=== PATIENT | male | born 1945 | race Caucasian/White ===

== ENCOUNTER 2023-07-24 12:56 | Day surgery (SDC) | payer MEDICARE, OTHER ==
[2023-07-21 11:27] LABS: BASOPHILS # (AUTO) 0.1 X10'3 (0-0.2); BASOPHILS % (AUTO) 0.7 % (0-1); EOSINOPHILS # (AUTO) 0.2 X10'3 (0-0.9); EOSINOPHILS % (AUTO) 2.8 % (0-6); HEMATOCRIT 44.9 % (42.0-52.0); HEMOGLOBIN 15.1 g/dl (14.0-17.9); LYMPHOCYTES # (AUTO) 2.8 X10'3 (1.1-4.8); LYMPHOCYTES % (AUTO) 40.1 % (21-51); MEAN CORPUSCULAR HEMOGLOBIN 30.5 PG (27.0-31.0); MEAN CORPUSCULAR HGB CONC 33.6 g/dL (33.0-36.5); MEAN CORPUSCULAR VOLUME 90.8 FL (78-98); MEAN PLATELET VOLUME 10.6 FL (7.4-10.4); MONOCYTES # (AUTO) 0.5 X10'3 (0-0.9); MONOCYTES % (AUTO) 7.6 % (2-12); NEUTROPHILS # (AUTO) 3.4 X10'3 (1.8-7.7); NEUTROPHILS % (AUTO) 48.8 % (42-75); PLATELET COUNT 172 X10'3 (140-440); RED BLOOD COUNT 4.94 X10'6 (4.70-6.10); RED CELL DISTRIBUTION WIDTH 13.7 % (11.5-14.5)
[2023-07-21 11:33] LABS: APTT 28 SECONDS (22-32); PROTHROMBIN TIME 10.6 SECONDS (9.0-12.0)
[2023-07-21 11:36] LABS: ALBUMIN 3.6 G/DL (3.4-5.0); ANION GAP 6 (8-16); BLOOD UREA NITROGEN 18 MG/DL (7-18); CALCIUM 9.6 MG/DL (8.5-10.1); CHLORIDE 104 MMOL/L (99-107); CHOL/HDL RATIO 2.5 (0.00-4.99); CHOLESTEROL 155 MG/DL (0-200); GLUCOSE 119 MG/DL (70-104); HDL CHOLESTEROL 61 MG/DL (35-60); LDL CHOLESTEROL 75 MG/DL (50-100); POTASSIUM 4.3 MMOL/L (3.5-5.1); SODIUM 139 MMOL/L (135-145); TOTAL CARBON DIOXIDE 29.3 MMOL/L (24-32); TRIGLYCERIDES 124 MG/DL (20-135); eGFR 81 ML/MIN
[2023-07-21 11:45] LABS: LARGE PLATELETS FEW; PLATELET ESTIMATE NORMAL
[2023-07-24] VITALS (11 sets, daily range): BP systolic 155–176; BP diastolic 62–73; PULSE 54–70; RESP 12–21; TEMP 97.8; O2SAT 94–100
[~2023-07-24] VITALS: Ht 170.2 cm; Wt 119.0 kg
[2023-07-24] MEDS ORDERED: diphenhydrAMINE 25mg capsule PO PRN (13:15)
[2023-07-24] MEDS ORDERED: LORazepam 0.5 MG tablet PO PRN (13:15)
[2023-07-24] MEDS ORDERED: normal saline 1,000 ML IV SCH (13:15)
[2023-07-24] MEDS ORDERED: MELO-100 PO (13:25)
[2023-07-24] MEDS ORDERED: BRIM5DRO2 EACHEYE (13:25)
[2023-07-24] MEDS ORDERED: ASPI81TA52 PO (13:25)
[2023-07-24] MEDS ORDERED: ALLO100T PO (13:25)
[2023-07-24] MEDS ORDERED: VITC500T PO (13:25)
[2023-07-24] MEDS ORDERED: FURO20TA4 PO (13:25)
[2023-07-24] MEDS ORDERED: COLC0.6T72 PO (13:25)
[2023-07-24] MEDS ORDERED: AMLO-381 PO (13:25)
[2023-07-24] MEDS ORDERED: CYAN250014 PO (13:25)
[2023-07-24] MEDS ORDERED: ROSU20TA73 PO (13:25)
[2023-07-24] MEDS ORDERED: MULT-269 PO (13:25)
[2023-07-24] MEDS ORDERED: CHOL50004 PO (13:25)
[2023-07-24] MEDS ORDERED: BIMA2.5D EACHEYE (13:25)
[2023-07-24] MEDS ORDERED: nitroGLYCERIN 500mcg/5mL D5W 5 ML IV ONE (15:02)
[2023-07-24] MEDS ORDERED: LIDOcaine 1% (10mg/ml) 2ml vial ONE (15:03)
[2023-07-24] MEDS ORDERED: fentaNYL/PF 50MCG/1 ML 2ML syringe ONE (15:04)
[2023-07-24] MEDS ORDERED: verapamil 2.5 mg/ml inj IV ONE (15:04)
[2023-07-24] MEDS ORDERED: iohexol 350MG/ML 100ml bottle IV ONE (15:04)
[2023-07-24] MEDS ORDERED: midazolam 1 mg/ML 2ml injection ONE (15:04)
[2023-07-24] MEDS ORDERED: heparin 1,000unit/ml 10ml vial 10 ML ONE (15:04)
[2023-07-24] MEDS ORDERED: LIDOcaine 1% (10mg/ml)w/preservative inj. 20ml MDV ONE (15:24)
[2023-07-24 15:58] LABS: ISTAT HGB ART 13.6 g/dl (14.0-17.9); ISTAT Hct ART 40 %PCV (42-52); ISTAT O2 SATURATION ARTERIAL 94 % (95-98); ISTAT SOURCE ART
[2023-07-24] MEDS ORDERED: iohexol 350 MG/ML 50ML vial IV ONE (16:09)
[2023-07-24] MEDS ORDERED: HYDROcodone/acetaminophen 10/325mg tab PO PRN (17:20)
[2023-07-24] MEDS ORDERED: HYDROcodone/acetaminophen 5mg/325mg tablet PO PRN (17:20)
[2023-07-25 06:54] LABS: ISTAT HGB MIX 13.6 g/dl (14.0-17.9); ISTAT Hct MIX 40 %PCV (42-52); ISTAT O2 SATURATION MIX VENOUS 68 % (60-80); ISTAT SOURCE VEN
== END 2023-07-24 19:30 | disposition home or self-care (01) ==
LOC: SSTAY O 12:56
PROVIDERS: ATTEND Student in an Organized Health Care Education/Training Program
DX: I35.0 Nonrheumatic aortic (valve) stenosis (principal); I25.119 Atherosclerotic heart disease of native coronary artery with unspecified angina pectoris; E78.5 Hyperlipidemia, unspecified; I10 Essential (primary) hypertension; I65.29 Occlusion and stenosis of unspecified carotid artery; G47.33 Obstructive sleep apnea (adult) (pediatric); M10.9 Gout, unspecified; Z79.82 Long term (current) use of aspirin; Z79.899 Other long term (current) drug therapy
CPT/HCPCS: 36415; 80048; 80061; 82803; 85014; 85025; 85610; 85730; 93005; 93456; 99152; 99153; A6258; J1644; J2250; J3010; J3490; J7030; Q0163; Q9967; 85008; A6402; C1751; C1894

== ENCOUNTER 2023-09-01 05:20 | Inpatient (IN) | payer MEDICARE, OTHER ==
[2023-08-28 15:20] LABS: BILIRUBIN,URINE NEGATIVE (Neg); CLARITY,URINE CLEAR (Clear); COLOR,URINE YELLOW (Yellow); GLUCOSE, URINE NEGATIVE (Neg); KETONES,URINE NEGATIVE (Neg); LEUKOCYTE ESTERASE ,URINE NEGATIVE (Neg); NITRITES, URINE NEGATIVE (Neg); OCCULT BLOOD,URINE NEGATIVE (Neg); PROTEIN,URINE NEGATIVE (Neg); UROBILINOGEN,URINE 0.2 E.U/dL (0.2-1.0)
[2023-08-28 15:23] LABS: BASOPHILS % (AUTO) 0.6 % (0-1); EOSINOPHILS # (AUTO) 0.2 X10'3 (0-0.9); EOSINOPHILS % (AUTO) 2.3 % (0-6); LYMPHOCYTES # (AUTO) 3.3 X10'3 (1.1-4.8); LYMPHOCYTES % (AUTO) 42.6 % (21-51); MEAN CORPUSCULAR HEMOGLOBIN 30.6 PG (27.0-31.0); MEAN CORPUSCULAR HGB CONC 33.9 g/dL (33.0-36.5); MEAN CORPUSCULAR VOLUME 90.3 FL (78-98); MEAN PLATELET VOLUME 11.7 FL (7.4-10.4); MONOCYTES # (AUTO) 0.6 X10'3 (0-0.9); MONOCYTES % (AUTO) 8.1 % (2-12); NEUTROPHILS # (AUTO) 3.5 X10'3 (1.8-7.7); NEUTROPHILS % (AUTO) 46.4 % (42-75); PRE OP HEMOGLOBIN 15.6 g/dL (14.0-17.9); PRE OP PLATELET COUNT 170 X10'3 (140-440); PRE OP WHITE BLOOD COUNT 7.6 10'3 (4.8-10.8); RED BLOOD COUNT 5.09 X10'6 (4.70-6.10); RED CELL DISTRIBUTION WIDTH 13.6 % (11.5-14.5)
[2023-08-28 15:23] LABS: ABG BASE EXCESS 0.7 mmol/L (-2.0-2.0); ABG HCO3 25.1 mmol/L (22.0-26.0); ABG OXYGEN SATURATION 96.3 % (94-97); ABG PCO2 (T) 39.6 mmHg (35.0-48.0); ABG PO2 (T) 80.9 mmHg (75.0-100.0); ALLEN'S TEST POSITIVE; FCOHb 0.7 % (0.0-3.9); FHHb 3.7 % (0.0-5.0); FMetHb 0.2 % (0.0-1.5); FO2Hb 95.4 % (94-97); TOTAL HEMOGLOBIN 15.9 G/dl (14.0-17.9)
[2023-08-28 15:26] LABS: UA COLLECTION TYPE CLN CATCH MIDSTREAM
[2023-08-28 15:32] LABS: PRE OP PROTIME 10.5 SECONDS (9.0-12.0)
[2023-08-28 15:37] LABS: ALBUMIN 3.9 G/DL (3.4-5.0); ALBUMIN/GLOBULIN RATIO 1.1 (1.1-1.5); ALKALINE PHOSPHATASE 76 IU/L (46-116); BLOOD UREA NITROGEN 27 MG/DL (7-18); BUN/CREATININE RATIO 32.5 (10.0-20.0); CALCIUM 9.8 MG/DL (8.5-10.1); CHLORIDE 103 MMOL/L (99-107); CREATININE 0.83 MG/DL (0.60-1.10); PRE OP ALT 32 U/L (30-65); PRE OP ANION GAP 7 (8-16); PRE OP AST 22 U/L (10-37); PRE OP BILIRUB, TOTAL 1.4 MG/DL (0.0-1.0); PRE OP GLUCOSE 85 MG/DL (70-104); PRE OP SODIUM 137 MMOL/L (135-145); TOTAL PROTEIN 7.6 G/DL (6.4-8.2); eGFR 89 ML/MIN
[~2023-09-01] VITALS: Ht 167.6 cm; Wt 115.8 kg
[2023-09-01] VITALS (19 sets, daily range): BP systolic 117–147; BP diastolic 45–82; PULSE 57–94; RESP 14–22; TEMP 97.6; O2SAT 92–98
[~2023-09-01 05:20] MED LIST: ALLO100T PO; AMLO1TAB14 PO; ASPI81TA52 PO; BCAR25C PO; BIMA2.5D EACHEYE; BRIM5DRO2 EACHEYE; CHOL50004 PO; COLC0.6T72 PO; CYAN250014 PO; FURO20TA4 PO; MELO-100 PO; MULT-269 PO; ROSU20TA73 PO; VITA400T10 PO; VITC500T PO; ZINC100T2 PO; ringers solution, lacted 1,000 ML IV SCH
[2023-09-01] MEDS ORDERED: metoprolol tartrate 12.5mg (1/2 tablet) PO ONE (05:30)
[2023-09-01] MEDS ORDERED: famotidine 20mg tablet PO ONE (05:30)
[2023-09-01] MEDS ORDERED: mupirocin 2% nasal ointment 1gm UD NS ONE (05:30)
[2023-09-01] MEDS ORDERED: cefazolin 2gm/D5W 100mL 100 ML IV ONE (05:30)
[2023-09-01] MEDS ORDERED: vancomycin 1,500 MG in NS 300ml IV soln IV ONE (05:30)
[2023-09-01] MEDS ORDERED: LORazepam 2 mg/ml vial IV PRN (06:20)
[2023-09-01] MEDS ORDERED: insulin glargine (Lantus) pen - multi-dose SQ PRN ×2 (06:25→12:50)
[2023-09-01] MEDS ORDERED: Insulin Reg/NS 100units/100mL 100 ML IV SCH ×2 (06:25→12:50)
[2023-09-01] MEDS ORDERED: dextrose 50%-water 50ml dispensing syringe IV PRN ×2 (06:25→12:50)
[2023-09-01] MEDS ORDERED: vancomycin 1,000mg inj ONE (06:45)
[2023-09-01] MEDS ORDERED: ceFAZolin 1000mg inj ONE (06:45)
[2023-09-01] MEDS ORDERED: epiNEPHrine 1 mg/ml inj ONE (06:45)
--- NOTE | 2023-09-01 07:00 | NUR ---
HELD METOPROLOL BASED ON PARAMETERS, HR 57: AMARI MÉNDEZ NOTIFIED
[2023-09-01] MEDS ORDERED: BUPIVAcaine 0.5% inj/PF 60 ML ONE (07:46)
[2023-09-01] MEDS ORDERED: albumin (human) 25% 100 ML IV solution IV ONE (08:00)
[2023-09-01] MEDS ORDERED: MAGNESIUM SULFATE 4 MEQ/ML (5gm/10ml) injection ONE (08:00)
[2023-09-01] MEDS ORDERED: heparin 10,000 units/1 ML INJ ONE (08:00)
[2023-09-01] MEDS ORDERED: LIDOcaine 2% (20 mg/ml) 5ml cardiac syringe ONE (08:00)
[2023-09-01] MEDS ORDERED: mannitol 12.5gm/50mL VIAL IV ONE (08:00)
[2023-09-01] MEDS ORDERED: calcium chloride 100 MG/1 ML inj IV ONE (08:00)
[2023-09-01] MEDS ORDERED: sodium bicarbonate (8.4%) 1 mEq/ml syringe ONE (08:00)
[2023-09-01] MEDS ORDERED: heparin 1,000 units/ml 10ml inj ONE (08:00)
[2023-09-01] MEDS ORDERED: aminocaproic acid 250 MG/1 ML inj. ONE ×2 (08:00→08:02)
[2023-09-01] MEDS ORDERED: NORepinephrine 1 mg/ml inj IV ONE (08:00)
[2023-09-01] MEDS ORDERED: methylPREDNISolone sod succ 1000mg vial ONE (08:00)
[2023-09-01] MEDS ORDERED: nitroPRUSSIDE 20mg/NS 100mL (0.2mg/mL) VIAL (200mcg/ml) IV ONE (08:02)
[2023-09-01] MEDS ORDERED: protamine sulf. 10mg/ml inj. IV ONE (08:02)
[2023-09-01] MEDS ORDERED: sodium bicarbonate 1 mEq/ml 50ml vial IV ONE (08:02)
[2023-09-01] MEDS ORDERED: SUfentanil 50mcg/ml 1ml amp IV ONE ×2 (08:06)
[2023-09-01] MEDS ORDERED: ipratropium/albuterol 3ml nebule IH PRN (08:15)
[2023-09-01] MEDS ORDERED: propofol inj 20 ML IV ONE (08:16)
[2023-09-01] MEDS ORDERED: LIDOcaine 2% (20mg/ml) 5ml vial ONE (08:16)
[2023-09-01] MEDS ORDERED: rocuronium 10mg/ml inj IV ONE ×2 (08:16→09:31)
[2023-09-01] MEDS ORDERED: LORazepam 2 mg/ml vial ONE (08:22)
[2023-09-01 09:08] LABS: ABG BASE EXCESS 0.1 mmol/L (-2.0-2.0); ABG HCO3 23.4 mmol/L (22.0-26.0); ABG OXYGEN SATURATION 99.6 % (94-97); ABG PCO2 33.8 mmHg (35.0-48.0); ABG PH 7.458 (7.340-7.440); ABG PO2 470.5 mmHg (75.0-100.0); CL (ABG) 107 mmol/L (99-107); FCOHb 0.2 % (0.0-3.9); FHHb 0.4 % (0.0-5.0); FMetHb 0.3 % (0.0-1.5); FO2Hb 99.1 % (94-97); GLUCOSE (ABG) 105 mg/dl (70-104); IONIZED CA (ABG) 1.19 mmol/L (1.10-1.30); K (ABG) 4.1 mmol/L (3.5-5.1); TOTAL HEMOGLOBIN 13.6 G/dl (14.0-17.9)
[2023-09-01 10:19] LABS: ABG BASE EXCESS -1.7 mmol/L (-2.0-2.0); ABG HCO3 22.9 mmol/L (22.0-26.0); ABG OXYGEN SATURATION 99.1 % (94-97); ABG PCO2 38.4 mmHg (35.0-48.0); ABG PH 7.394 (7.340-7.440); ABG PO2 333.9 mmHg (75.0-100.0); CL (ABG) 103 mmol/L (99-107); FCOHb 0.3 % (0.0-3.9); FHHb 0.9 % (0.0-5.0); FMetHb 0.3 % (0.0-1.5); FO2Hb 98.5 % (94-97); GLUCOSE (ABG) 96 mg/dl (70-104); IONIZED CA (ABG) 1.03 mmol/L (1.10-1.30); TOTAL HEMOGLOBIN 10.6 G/dl (14.0-17.9)
[2023-09-01 11:03] LABS: ABG BASE EXCESS VENOUS -2.6 mmol/L (-2.0 - 2.0); ABG HCO3 VENOUS 22.7 mmol/L (21.0-28.0); ABG OXYGEN SATURATION VENOUS 85.2 % (75 - 99 %); ABG PCO2 VENOUS 41.6 mmHg (41.0-54.0); ABG PH (VENOUS) 7.355 (7.310-7.450); CL (ABG) 103 mmol/L (99-107); FCOHb VENOUS 0.3 %; FHHb VENOUS 14.7 %; FMetHb VENOUS 0.3 % (0.0 - 0.5); FO2Hb VENOUS 84.7 %; GLUCOSE (ABG) 106 mg/dl (70-104); IONIZED CA (ABG) 1.05 mmol/L (1.10-1.30); K (ABG) 5.2 mmol/L (3.5-5.1); TOTAL HEMOGLOBIN 9.9 G/dl (14.0-17.9)
[2023-09-01 11:36] LABS: ABG BASE EXCESS -2.5 mmol/L (-2.0-2.0); ABG HCO3 22.2 mmol/L (22.0-26.0); ABG OXYGEN SATURATION 99.1 % (94-97); ABG PCO2 38.1 mmHg (35.0-48.0); ABG PH 7.384 (7.340-7.440); ABG PO2 314.8 mmHg (75.0-100.0); CL (ABG) 105 mmol/L (99-107); FCOHb 0.3 % (0.0-3.9); FHHb 0.9 % (0.0-5.0); FMetHb 0.3 % (0.0-1.5); FO2Hb 98.5 % (94-97); GLUCOSE (ABG) 114 mg/dl (70-104); IONIZED CA (ABG) 1.09 mmol/L (1.10-1.30); K (ABG) 4.4 mmol/L (3.5-5.1); TOTAL HEMOGLOBIN 10.4 G/dl (14.0-17.9)
[2023-09-01 12:26] LABS: ABG BASE EXCESS -2.7 mmol/L (-2.0-2.0); ABG HCO3 22.5 mmol/L (22.0-26.0); ABG OXYGEN SATURATION 96.6 % (94-97); ABG PCO2 40.4 mmHg (35.0-48.0); ABG PH 7.363 (7.340-7.440); ABG PO2 95.3 mmHg (75.0-100.0); CL (ABG) 105 mmol/L (99-107); FCOHb 0.3 % (0.0-3.9); FHHb 3.4 % (0.0-5.0); FMetHb 0.3 % (0.0-1.5); GLUCOSE (ABG) 126 mg/dl (70-104); IONIZED CA (ABG) 1.25 mmol/L (1.10-1.30); K (ABG) 4.2 mmol/L (3.5-5.1); TOTAL HEMOGLOBIN 10.3 G/dl (14.0-17.9)
[2023-09-01 12:28] LABS: ACTIVATED CLOTTING TIME 110 SEC (101-148)
[2023-09-01] MEDS ORDERED: esmolol inj. 10 ML IV ONE (12:38)
[2023-09-01] MEDS ORDERED: niCARDipine-NS 40mg/200ml IVPB 200 ML IV PRN (12:50)
[2023-09-01] MEDS ORDERED: potassium Cl 40MEQ/270ML bag 250 ML IV PRN (12:50)
[2023-09-01] MEDS ORDERED: sodium phosphate inj. 15 MMOL in dextrose 5%-water 250 ML IV PRN (12:50)
[2023-09-01] MEDS ORDERED: magnesium 2GM in 50ml NS 50 ML IV PRN (12:50)
[2023-09-01] MEDS ORDERED: magnesium hydroxide 30ml (MOM) UD suspension PO PRN (12:50)
[2023-09-01] MEDS ORDERED: magnesium 4gm in 100ml NS 100 ML IV PRN (12:50)
[2023-09-01] MEDS ORDERED: mineral oil 133ml enema RC PRN (12:50)
[2023-09-01] MEDS ORDERED: bisacodyl 10mg suppository rectal RC PRN (12:50)
[2023-09-01] MEDS ORDERED: ondansetron/PF 4mg/2ml inj IV PRN (12:50)
[2023-09-01] MEDS: nitroGLYCERIN-Tridil 50MG/D5W 250 ML IV SCH (12:50)
[2023-09-01] MEDS ORDERED: NORepinephrine 8mg/ 250ml NS 250 ML IV PRN (12:50)
[2023-09-01] MEDS ORDERED: potassium Cl 20 mEq SR tablet PO PRN (12:50)
[2023-09-01] MEDS ORDERED: potassium CL 10mEq/100ml bag 100 ML IV PRN (12:50)
[2023-09-01] MEDS ORDERED: Neutra Phos packet PO PRN (12:50)
[2023-09-01] MEDS ORDERED: sodium phosphate inj. 30 MMOL in dextrose 5%-water 250 ML IV PRN (12:50)
[2023-09-01] MEDS ORDERED: potassium Cl 40MEQ/1/2NS 520ml 520 ML IV PRN (12:50)
[2023-09-01] MEDS ORDERED: albumin (Human) 5% 250ml 250 ML IV PRN (12:50)
[2023-09-01] MEDS ORDERED: sodium chloride 0.45% 1,000 ML IV SCH (12:50)
[2023-09-01] MEDS ORDERED: metoclopramide 5 mg/ml inj IV PRN (12:50)
[2023-09-01] MEDS ORDERED: morphine 4 MG/ML inj SYRINge IV PRN (12:50)
[2023-09-01] MEDS ORDERED: acetaminophen 325mg tablet PO PRN ×2 (12:50)
[2023-09-01] MEDS ORDERED: colchicine 0.6mg tablet PO PRN (13:05)
[2023-09-01 13:25] LABS: ABG BASE EXCESS -2.8 mmol/L (-2.0-2.0); ABG HCO3 21.4 mmol/L (22.0-26.0); ABG OXYGEN SATURATION 98.2 % (94-97); ABG PCO2 (T) 34.5 mmHg (35.0-48.0); ABG PH (T) 7.408 (7.340-7.440); ABG PO2 (T) 105.6 mmHg (75.0-100.0); FCOHb 0.9 % (0.0-3.9); FHHb 1.8 % (0.0-5.0); FMetHb 0.3 % (0.0-1.5); MODE VENT - SIMV; PATIENT TEMPERATURE 36.6; PEEP 5 cm H2O; RESPIRATORY RATE 14 b/min; TIDAL VOLUME 650 mL; TOTAL HEMOGLOBIN 11.6 G/dl (14.0-17.9)
[2023-09-01 14:42] LABS: BASOPHILS % (AUTO) 0.2 % (0-1); EOSINOPHILS # (AUTO) 0.1 X10'3 (0-0.9); EOSINOPHILS % (AUTO) 0.5 % (0-6); HEMATOCRIT 33.9 % (42.0-52.0); HEMOGLOBIN 11.3 g/dl (14.0-17.9); LYMPHOCYTES # (AUTO) 2.3 X10'3 (1.1-4.8); LYMPHOCYTES % (AUTO) 15.7 % (21-51); MEAN CORPUSCULAR HEMOGLOBIN 30.3 PG (27.0-31.0); MEAN CORPUSCULAR HGB CONC 33.3 g/dL (33.0-36.5); MEAN PLATELET VOLUME 11.5 FL (7.4-10.4); MONOCYTES % (AUTO) 7.1 % (2-12); NEUTROPHILS % (AUTO) 76.5 % (42-75); PLATELET COUNT 100 X10'3 (140-440); RED BLOOD COUNT 3.72 X10'6 (4.70-6.10); RED CELL DISTRIBUTION WIDTH 13.5 % (11.5-14.5); WHITE BLOOD COUNT 14.4 X10'3 (4.5-11.0)
[2023-09-01 14:58] LABS: APTT 26 SECONDS (22-32); INR 1.2 INR
[2023-09-01] MEDS: morphine 2 MG/ML inj. syringe IV PRN (15:00)
--- NOTE | 2023-09-01 15:03 | NUR ---
Nutrition consult: Per EMR pt remains intubated s/p CABG x 4 and AVR today. Pt would benefit from nutrition therapy education as appropriate following extubation. Will continue to follow. Addendum: 09/01/23 at [address] Amended: Links added.
[2023-09-01 15:06] LABS: ALANINE AMINOTRANSFERASE 25 U/L (12-78); ALBUMIN 2.8 G/DL (3.4-5.0); ALBUMIN/GLOBULIN RATIO 1.6 (1.1-1.5); ALKALINE PHOSPHATASE 41 IU/L (46-116); ANION GAP 10 (8-16); ASPARTATE AMINO TRANSFERASE 43 U/L (10-37); BILIRUBIN,TOTAL 1.4 MG/DL (0.1-1.0); BLOOD UREA NITROGEN 21 MG/DL (7-18); BUN/CREATININE RATIO 24.7 (10.0-20.0); CALCIUM 8.1 MG/DL (8.5-10.1); CHLORIDE 109 MMOL/L (99-107); CREATININE 0.85 MG/DL (0.60-1.10); GLUCOSE 120 MG/DL (70-104); MAGNESIUM 3.3 MG/DL (1.5-2.4); PHOSPHORUS 1.7 MG/DL (2.3-4.5); SODIUM 143 MMOL/L (135-145); TOTAL CARBON DIOXIDE 24.2 MMOL/L (24-32); TOTAL PROTEIN 4.6 G/DL (6.4-8.2); eCRCL 64 ML/MIN; eGFR 87 ML/MIN
[2023-09-01 15:08] LABS: POTASSIUM 3.7 MMOL/L (3.5-5.1)
[2023-09-01 15:18] LABS: LARGE PLATELETS FEW; PLATELET ESTIMATE NORMAL; SMUDGE CELLS FEW; TOTAL CELLS COUNTED 100
[2023-09-01 16:10] LABS: ABG BASE EXCESS -7.4 mmol/L (-2.0-2.0); ABG HCO3 18.4 mmol/L (22.0-26.0); ABG OXYGEN SATURATION 95.3 % (94-97); ABG PCO2 (T) 37.1 mmHg (35.0-48.0); ABG PH (T) 7.309 (7.340-7.440); ABG PO2 (T) 78.7 mmHg (75.0-100.0); FHHb 4.6 % (0.0-5.0); FMetHb 0.3 % (0.0-1.5); FO2Hb 94.1 % (94-97); MODE VENT - CPAP; PATIENT TEMPERATURE 36.4; PEEP 5 cm H2O; TOTAL HEMOGLOBIN 12.4 G/dl (14.0-17.9)
[2023-09-01] MEDS: ceFAZolin/D5W- 1GM premix 50 ML IV SCH ×2 (16:33→23:52)
[2023-09-01] MEDS: potassium Cl 20mEq/100mL bag 100 ML IV PRN ×3 (16:33→20:01)
--- NOTE | 2023-09-01 18:30 | NUR ---
Patient in room ICU 2038. I have received report from Jeronimo MAE and had the opportunity to ask questions and assume patient care.
--- NOTE | 2023-09-01 19:33 | NUR ---
PA line not calculation numbers. attempted to change box and still not calculating. Jabier villegas to D/C
[2023-09-01] MEDS: sennosides/docusate sodium tablet PO SCH (20:00)
[2023-09-01] MEDS: mupirocin 2% nasal ointment 1gm UD NS SCH (20:01)
[2023-09-01] MEDS: vancomycin/NS 1 GM ADD-VANTAGE 250 ML IV SCH (20:01)
[2023-09-01] MEDS: brimonidine 0.2% 5 ML ophthalmic drops EACHEYE SCH (20:02)
[2023-09-01] MEDS: timolol 0.5% ophthalmic solution 5ml bottle EACHEYE SCH (20:02)
[2023-09-01] MEDS: latanoprost 0.005% 2.5ml ophthalmic drops EACHEYE SCH (20:12)
[2023-09-01] MEDS: atorvastatin 10mg tablet PO SCH (20:12)
[2023-09-01] MEDS: cyanocobalamin 500mcg tablet PO SCH (20:12)
[2023-09-01] MEDS: cholecalciferol (vitamin D3) 1,000 unit (25mcg) tablet PO SCH (20:12)
[2023-09-01] MEDS: allopurinol 100mg tablet PO SCH (20:13)
[2023-09-01 22:25] LABS: BASOPHILS % (AUTO) 0.1 % (0-1); EOSINOPHILS % (AUTO) 0.1 % (0-6); LYMPHOCYTES # (AUTO) 0.7 X10'3 (1.1-4.8); LYMPHOCYTES % (AUTO) 4.1 % (21-51); MEAN CORPUSCULAR HEMOGLOBIN 30.3 PG (27.0-31.0); MEAN CORPUSCULAR HGB CONC 33.2 g/dL (33.0-36.5); MEAN CORPUSCULAR VOLUME 91.2 FL (78-98); MEAN PLATELET VOLUME 10.5 FL (7.4-10.4); MONOCYTES # (AUTO) 0.7 X10'3 (0-0.9); MONOCYTES % (AUTO) 4.2 % (2-12); NEUTROPHILS # (AUTO) 15.9 X10'3 (1.8-7.7); NEUTROPHILS % (AUTO) 91.5 % (42-75); PLATELET COUNT 90 X10'3 (140-440); RED BLOOD COUNT 3.62 X10'6 (4.70-6.10); RED CELL DISTRIBUTION WIDTH 13.6 % (11.5-14.5); WHITE BLOOD COUNT 17.3 X10'3 (4.5-11.0)
[2023-09-01 22:41] LABS: ANION GAP 11 (8-16); BLOOD UREA NITROGEN 24 MG/DL (7-18); BUN/CREATININE RATIO 21.4 (10.0-20.0); CALCIUM 7.6 MG/DL (8.5-10.1); CHLORIDE 111 MMOL/L (99-107); CREATININE 1.12 MG/DL (0.60-1.10); GLUCOSE 162 MG/DL (70-104); MAGNESIUM 2.5 MG/DL (1.5-2.4); PHOSPHORUS 4.2 MG/DL (2.3-4.5); SODIUM 143 MMOL/L (135-145); TOTAL CARBON DIOXIDE 21.3 MMOL/L (24-32); eCRCL 48 ML/MIN; eGFR 63 ML/MIN
[2023-09-01] MEDS: HYDROcodone/acetaminophen 10/325mg tab PO PRN (23:34)
[2023-09-02] VITALS (24 sets, daily range): BP systolic 112–152; BP diastolic 44–70; PULSE 58–73; RESP 2–22; O2SAT 92–96
--- NOTE | 2023-09-02 00:16 | NUR ---
Patient educated continuously throughout the shift on sternal precautions but continues to be impulsive and use elbows and arms to shift around in bed.
--- NOTE | 2023-09-02 01:32 | NUR ---
Continue to educate patient on sternal precautions but patient continues to use elbows and shift self in bed. In constant view of patient.
[2023-09-02] MEDS: morphine 2 MG/ML inj. syringe IV PRN (01:40)
[2023-09-02] MEDS: nitroGLYCERIN-Tridil 50MG/D5W 250 ML IV SCH (02:46)
[2023-09-02] MEDS: HYDROcodone/acetaminophen 10/325mg tab PO PRN ×2 (03:12→20:58)
[2023-09-02 03:26] LABS: BASOPHILS % (AUTO) 0.1 % (0-1); EOSINOPHILS % (AUTO) 0 % (0-6); HEMATOCRIT 34.7 % (42.0-52.0); HEMOGLOBIN 11.5 g/dl (14.0-17.9); LYMPHOCYTES # (AUTO) 0.9 X10'3 (1.1-4.8); LYMPHOCYTES % (AUTO) 4.7 % (21-51); MEAN CORPUSCULAR HEMOGLOBIN 30.3 PG (27.0-31.0); MEAN CORPUSCULAR HGB CONC 33.2 g/dL (33.0-36.5); MEAN CORPUSCULAR VOLUME 91.3 FL (78-98); MEAN PLATELET VOLUME 12.1 FL (7.4-10.4); MONOCYTES # (AUTO) 1.1 X10'3 (0-0.9); MONOCYTES % (AUTO) 5.6 % (2-12); NEUTROPHILS % (AUTO) 89.6 % (42-75); PLATELET COUNT 100 X10'3 (140-440); RED CELL DISTRIBUTION WIDTH 13.9 % (11.5-14.5); WHITE BLOOD COUNT 18.9 X10'3 (4.5-11.0)
[2023-09-02 03:42] LABS: ALANINE AMINOTRANSFERASE 29 U/L (12-78); ALBUMIN 3.3 G/DL (3.4-5.0); ALBUMIN/GLOBULIN RATIO 1.5 (1.1-1.5); ALKALINE PHOSPHATASE 47 IU/L (46-116); ANION GAP 11 (8-16); ASPARTATE AMINO TRANSFERASE 68 U/L (10-37); BILIRUBIN,TOTAL 1.4 MG/DL (0.1-1.0); BLOOD UREA NITROGEN 25 MG/DL (7-18); BUN/CREATININE RATIO 27.5 (10.0-20.0); CALCIUM 8.2 MG/DL (8.5-10.1); CHLORIDE 109 MMOL/L (99-107); CREATININE 0.91 MG/DL (0.60-1.10); GLUCOSE 159 MG/DL (70-104); MAGNESIUM 2.6 MG/DL (1.5-2.4); PHOSPHORUS 3.9 MG/DL (2.3-4.5); POTASSIUM 4.9 MMOL/L (3.5-5.1); SODIUM 141 MMOL/L (135-145); TOTAL CARBON DIOXIDE 21.5 MMOL/L (24-32); TOTAL PROTEIN 5.5 G/DL (6.4-8.2); eCRCL 59 ML/MIN; eGFR 80 ML/MIN
--- NOTE | 2023-09-02 06:12 | NUR ---
Problems reprioritized. Patient report given, questions answered & plan of care reviewed with Bernie MAE.
--- NOTE | 2023-09-02 06:35 | NUR ---
Assumed care of pt after report from Esther MAE. Pt is resting comfortably. O2 NC decreased to 4.5 L.
--- NOTE | 2023-09-02 08:00 | NUR ---
O2 decreased to 4L NC. VSS.
[2023-09-02] MEDS: multivitamins, therapeutics tablet PO SCH (08:59)
[2023-09-02] MEDS: sennosides/docusate sodium tablet PO SCH ×2 (08:59→20:54)
[2023-09-02] MEDS: metoprolol tartrate 12.5mg (1/2 tablet) PO SCH ×2 (08:59→20:54)
[2023-09-02] MEDS: aspirin 81mg tab.chew PO SCH (08:59)
[2023-09-02] MEDS: ceFAZolin/D5W- 1GM premix 50 ML IV SCH ×2 (09:00→15:23)
[2023-09-02] MEDS: mupirocin 2% nasal ointment 1gm UD NS SCH ×2 (09:00→20:00)
[2023-09-02] MEDS: brimonidine 0.2% 5 ML ophthalmic drops EACHEYE SCH ×2 (09:00→20:56)
[2023-09-02] MEDS: timolol 0.5% ophthalmic solution 5ml bottle EACHEYE SCH ×2 (09:01→20:55)
[2023-09-02] MEDS: vancomycin/NS 1 GM ADD-VANTAGE 250 ML IV SCH ×2 (09:09→20:53)
--- NOTE | 2023-09-02 12:10 | NUR ---
Marissa removed and RIJ central line dsg changed with the help of Student nurse. Pt tolerated it well. Pt's at bedside.
--- NOTE | 2023-09-02 13:00 | NUR ---
Pt is OOB to chair eating lunch. Pt does have some forgetful and impulsive moments. remains at bedside.
[2023-09-02] MEDS ORDERED: MESSAGE TO PHARMACY PO ONE (15:55)
[2023-09-02] MEDS ORDERED: insulin Lispro (HumaLOG) vial - multi-dose SQ SCH (15:55)
[2023-09-02] MEDS ORDERED: glucagon, human recombinant 1mg kit SUBCUT PRN (15:55)
[2023-09-02] MEDS ORDERED: DEXTROSE 15 GM of carb/4 tabs (each vial/BOTTLE has 4 tablets) PO PRN ×2 (15:55)
--- NOTE | 2023-09-02 18:45 | NUR ---
Report given to Susan MAE.
[2023-09-02] MEDS: insulin glargine (Lantus) pen - multi-dose SQ SCH (21:00)
[2023-09-02] MEDS: cyanocobalamin 500mcg tablet PO SCH (21:00)
[2023-09-02] MEDS: cholecalciferol (vitamin D3) 1,000 unit (25mcg) tablet PO SCH (22:07)
[2023-09-02] MEDS: allopurinol 100mg tablet PO SCH (22:07)
[2023-09-02] MEDS: atorvastatin 10mg tablet PO SCH (22:08)
[2023-09-02] MEDS: latanoprost 0.005% 2.5ml ophthalmic drops EACHEYE SCH (22:09)
[2023-09-03] VITALS (25 sets, daily range): BP systolic 100–189; BP diastolic 30–84; PULSE 53–83; RESP 10–24; O2SAT 21–98
[2023-09-03] MEDS: ceFAZolin/D5W- 1GM premix 50 ML IV SCH (00:36)
[2023-09-03] MEDS: HYDROcodone/acetaminophen 10/325mg tab PO PRN ×3 (00:50→19:08)
[2023-09-03 02:34] LABS: BASOPHILS % (AUTO) 0.1 % (0-1); EOSINOPHILS % (AUTO) 0 % (0-6); HEMATOCRIT 31.2 % (42.0-52.0); HEMOGLOBIN 10.4 g/dl (14.0-17.9); LYMPHOCYTES # (AUTO) 1.6 X10'3 (1.1-4.8); LYMPHOCYTES % (AUTO) 7.4 % (21-51); MEAN CORPUSCULAR HEMOGLOBIN 30.3 PG (27.0-31.0); MEAN CORPUSCULAR HGB CONC 33.2 g/dL (33.0-36.5); MEAN CORPUSCULAR VOLUME 91.2 FL (78-98); MEAN PLATELET VOLUME 11.9 FL (7.4-10.4); MONOCYTES # (AUTO) 1.8 X10'3 (0-0.9); MONOCYTES % (AUTO) 8.6 % (2-12); NEUTROPHILS # (AUTO) 17.7 X10'3 (1.8-7.7); NEUTROPHILS % (AUTO) 83.9 % (42-75); PLATELET COUNT 94 X10'3 (140-440); RED BLOOD COUNT 3.42 X10'6 (4.70-6.10); RED CELL DISTRIBUTION WIDTH 13.9 % (11.5-14.5); WHITE BLOOD COUNT 21.1 X10'3 (4.5-11.0)
[2023-09-03 02:53] LABS: ANION GAP 4 (8-16); BLOOD UREA NITROGEN 40 MG/DL (7-18); BUN/CREATININE RATIO 36.7 (10.0-20.0); CALCIUM 8.3 MG/DL (8.5-10.1); CHLORIDE 105 MMOL/L (99-107); CREATININE 1.09 MG/DL (0.60-1.10); GLUCOSE 128 MG/DL (70-104); MAGNESIUM 2.7 MG/DL (1.5-2.4); POTASSIUM 4.7 MMOL/L (3.5-5.1); SODIUM 136 MMOL/L (135-145); eCRCL 50 ML/MIN; eGFR 65 ML/MIN
--- NOTE | 2023-09-03 06:36 | NUR ---
Problems reprioritized. Patient report given, questions answered & plan of care reviewed with Rosa MAE.
--- NOTE | 2023-09-03 07:07 | NUR ---
Patient in room ICU 2038. I have received report from CARMELITA BONDS, and had the opportunity to ask questions and assume patient care.
[2023-09-03] MEDS: brimonidine 0.2% 5 ML ophthalmic drops EACHEYE SCH ×2 (07:56→19:09)
[2023-09-03] MEDS: timolol 0.5% ophthalmic solution 5ml bottle EACHEYE SCH ×2 (07:57→19:08)
[2023-09-03] MEDS: mupirocin 2% nasal ointment 1gm UD NS SCH (07:58)
[2023-09-03] MEDS: sennosides/docusate sodium tablet PO SCH ×2 (07:58→19:07)
[2023-09-03] MEDS: aspirin 81mg tab.chew PO SCH (07:58)
[2023-09-03] MEDS: pantoprazole 40mg Tablet.DR PO SCH (07:58)
[2023-09-03] MEDS: metoprolol tartrate 12.5mg (1/2 tablet) PO SCH ×2 (07:59→19:07)
[2023-09-03] MEDS: multivitamins, therapeutics tablet PO SCH (07:59)
[2023-09-03] MEDS ORDERED: furosemide 40mg/4ml inj IV ONE (09:30)
--- NOTE | 2023-09-03 18:22 | NUR ---
Problems reprioritized. Patient report given, questions answered & plan of care reviewed with CARMELITA CHEN.
[2023-09-03] MEDS: cholecalciferol (vitamin D3) 1,000 unit (25mcg) tablet PO SCH (20:58)
[2023-09-03] MEDS: cyanocobalamin 500mcg tablet PO SCH (20:58)
[2023-09-03] MEDS: allopurinol 100mg tablet PO SCH (20:58)
[2023-09-03] MEDS: atorvastatin 10mg tablet PO SCH (20:58)
[2023-09-03] MEDS: latanoprost 0.005% 2.5ml ophthalmic drops EACHEYE SCH (20:59)
[2023-09-03] MEDS: insulin glargine (Lantus) pen - multi-dose SQ SCH (21:00)
[2023-09-04] VITALS (16 sets, daily range): BP systolic 125–164; BP diastolic 49–75; PULSE 55–83; RESP 10–20; TEMP 97.1–99; O2SAT 93–97
[2023-09-04 03:14] LABS: BASOPHILS % (AUTO) 0.1 % (0-1); EOSINOPHILS % (AUTO) 0.1 % (0-6); HEMATOCRIT 30.7 % (42.0-52.0); HEMOGLOBIN 10.1 g/dl (14.0-17.9); LYMPHOCYTES # (AUTO) 1.9 X10'3 (1.1-4.8); LYMPHOCYTES % (AUTO) 10.8 % (21-51); MEAN CORPUSCULAR HGB CONC 33.1 g/dL (33.0-36.5); MEAN CORPUSCULAR VOLUME 90.9 FL (78-98); MEAN PLATELET VOLUME 11.5 FL (7.4-10.4); MONOCYTES # (AUTO) 1.5 X10'3 (0-0.9); MONOCYTES % (AUTO) 8.7 % (2-12); NEUTROPHILS % (AUTO) 80.3 % (42-75); PLATELET COUNT 94 X10'3 (140-440); RED BLOOD COUNT 3.37 X10'6 (4.70-6.10); RED CELL DISTRIBUTION WIDTH 13.8 % (11.5-14.5); WHITE BLOOD COUNT 17.5 X10'3 (4.5-11.0)
[2023-09-04 03:16] LABS: ALBUMIN 2.9 G/DL (3.4-5.0); CALCIUM 8.5 MG/DL (8.5-10.1); MAGNESIUM 2.8 MG/DL (1.5-2.4); POTASSIUM 4.5 MMOL/L (3.5-5.1); SODIUM 137 MMOL/L (135-145)
[2023-09-04 03:55] LABS: BLOOD UREA NITROGEN 42 MG/DL (7-18); BUN/CREATININE RATIO 47.2 (10.0-20.0); CREATININE 0.89 MG/DL (0.60-1.10); eCRCL 61 ML/MIN; eGFR 82 ML/MIN
[2023-09-04 04:01] LABS: GLUCOSE 111 MG/DL (70-104)
[2023-09-04 04:02] LABS: CHLORIDE 105 MMOL/L (99-107); TOTAL CARBON DIOXIDE 26.5 MMOL/L (24-32)
[2023-09-04 04:03] LABS: ANION GAP 6 (8-16)
[2023-09-04] MEDS: HYDROcodone/acetaminophen 10/325mg tab PO PRN (05:44)
[2023-09-04 06:23] LABS: ACT @ 1.70 U 262 SEC (193-297); ACT @ 2.84 U 371 SEC (260-420); BASELINE ACT 135 SEC (101-148)
--- NOTE | 2023-09-04 06:30 | NUR ---
Patient in room ICU 2038. I have received report from Shahid MAE and had the opportunity to ask questions and assume patient care.
[2023-09-04] MEDS ORDERED: potassium Cl 20 mEq SR tablet PO PRN ×2 (07:30)
[2023-09-04] MEDS ORDERED: magnesium 4gm in 100ml NS 100 ML IV PRN (07:30)
[2023-09-04] MEDS ORDERED: magnesium 2GM in 50ml NS 50 ML IV PRN (07:30)
[2023-09-04] MEDS ORDERED: potassium Cl 40MEQ/1/2NS 520ml 520 ML IV PRN (07:30)
[2023-09-04] MEDS ORDERED: potassium Cl 20mEq/100mL bag 100 ML IV PRN (07:30)
[2023-09-04] MEDS ORDERED: potassium CL 10mEq/100ml bag 100 ML IV PRN (07:30)
[2023-09-04] MEDS ORDERED: potassium Cl 40MEQ/270ML bag 250 ML IV PRN (07:30)
[2023-09-04] MEDS: pantoprazole 40mg Tablet.DR PO SCH (07:40)
[2023-09-04] MEDS ORDERED: losartan 50mg tablet PO SCH (08:00)
[2023-09-04] MEDS: magnesium Cl slow-release 64mg tablet PO SCH ×2 (08:00→19:46)
[2023-09-04] MEDS: multivitamins, therapeutics tablet PO SCH (08:42)
[2023-09-04] MEDS: brimonidine 0.2% 5 ML ophthalmic drops EACHEYE SCH ×2 (08:42→19:45)
[2023-09-04] MEDS: sennosides/docusate sodium tablet PO SCH ×2 (08:42→19:46)
[2023-09-04] MEDS: metoprolol tartrate 12.5mg (1/2 tablet) PO SCH ×2 (08:42→19:46)
[2023-09-04] MEDS: aspirin 81mg tab.chew PO SCH (08:42)
[2023-09-04] MEDS: timolol 0.5% ophthalmic solution 5ml bottle EACHEYE SCH ×2 (08:43→19:46)
--- NOTE | 2023-09-04 10:38 | NUR ---
Problems reprioritized. Patient report given, questions answered & plan of care reviewed with Vinita MAE on telemetry.
--- NOTE | 2023-09-04 11:07 | NUR ---
CABG consult: Pt and SO seen at bedside for verbal/written high protein heart healthy nutrition education. RD contact also provided and encouraged pt to reach out for any nutrition questions or concerns. Pt states dislike of milk and yogurt; communicated with dietary. Pt states "finger medical equipment is in the way when I eat" (likely affecting intake) though then states equipment will be coming off soon prior to transferring to the floor. Addendum: 09/04/23 at [address] Amended: Links added.
--- NOTE | 2023-09-04 11:19 | NUR ---
Patient in room ICU 2038. I have received report from Emily MAE and had the opportunity to ask questions and assume patient care. Addendum: 09/04/23 at 2254 by Elva Hernández RN pt refused weight this shift.
[2023-09-04] MEDS: latanoprost 0.005% 2.5ml ophthalmic drops EACHEYE SCH (22:08)
[2023-09-04] MEDS: allopurinol 100mg tablet PO SCH (22:09)
[2023-09-04] MEDS: atorvastatin 10mg tablet PO SCH (22:09)
[2023-09-04] MEDS: cyanocobalamin 500mcg tablet PO SCH (22:09)
[2023-09-04] MEDS: cholecalciferol (vitamin D3) 1,000 unit (25mcg) tablet PO SCH (22:16)
[2023-09-05 02:30] VITALS: BP 184/69; PULSE 71; RESP 22; TEMP 97.1; O2SAT 92
[2023-09-05 06:00] VITALS: BP 186/86; PULSE 75; RESP 16; TEMP 97.9; O2SAT 98
--- NOTE | 2023-09-05 06:41 | NUR ---
Problems reprioritized. Patient report given, questions answered & plan of care reviewed with Vinita MAE. Pt stable at shift change.
[2023-09-05] MEDS: sennosides/docusate sodium tablet PO SCH (08:00)
[2023-09-05] MEDS: magnesium Cl slow-release 64mg tablet PO SCH (08:00)
[2023-09-05 08:32] VITALS: PULSE 77
[2023-09-05] MEDS: metoprolol tartrate 12.5mg (1/2 tablet) PO SCH (08:32)
[2023-09-05] MEDS: aspirin 81mg tab.chew PO SCH (08:32)
[2023-09-05] MEDS: multivitamins, therapeutics tablet PO SCH (08:33)
[2023-09-05] MEDS: pantoprazole 40mg Tablet.DR PO SCH (08:33)
[2023-09-05] MEDS ORDERED: furosemide 40mg tablet PO ONE (08:35)
[2023-09-05] MEDS ORDERED: losartan 50mg tablet PO SCH (08:35)
[2023-09-05] MEDS: timolol 0.5% ophthalmic solution 5ml bottle EACHEYE SCH (08:36)
[2023-09-05] MEDS: brimonidine 0.2% 5 ML ophthalmic drops EACHEYE SCH (08:36)
[2023-09-05] MEDS ORDERED: HYDR-3972 PO (08:37)
[2023-09-05] MEDS ORDERED: LOP12.5T PO (08:37)
[2023-09-05 08:38] VITALS: BP_SYST 104
[2023-09-05 09:16] LABS: BASOPHILS % (AUTO) 0.1 % (0-1); EOSINOPHILS % (AUTO) 0.1 % (0-6); HEMATOCRIT 34.2 % (42.0-52.0); HEMOGLOBIN 11.5 g/dl (14.0-17.9); LYMPHOCYTES # (AUTO) 1.9 X10'3 (1.1-4.8); LYMPHOCYTES % (AUTO) 14.4 % (21-51); MEAN CORPUSCULAR HEMOGLOBIN 30.4 PG (27.0-31.0); MEAN CORPUSCULAR HGB CONC 33.5 g/dL (33.0-36.5); MEAN CORPUSCULAR VOLUME 90.8 FL (78-98); MEAN PLATELET VOLUME 11.4 FL (7.4-10.4); MONOCYTES # (AUTO) 1.3 X10'3 (0-0.9); MONOCYTES % (AUTO) 9.7 % (2-12); NEUTROPHILS # (AUTO) 10.3 X10'3 (1.8-7.7); NEUTROPHILS % (AUTO) 75.7 % (42-75); PLATELET COUNT 124 X10'3 (140-440); RED BLOOD COUNT 3.77 X10'6 (4.70-6.10); RED CELL DISTRIBUTION WIDTH 13.2 % (11.5-14.5); WHITE BLOOD COUNT 13.5 X10'3 (4.5-11.0)
[2023-09-05 09:47] LABS: ALBUMIN 2.9 G/DL (3.4-5.0); ANION GAP 7 (8-16); BLOOD UREA NITROGEN 30 MG/DL (7-18); BUN/CREATININE RATIO 37.5 (10.0-20.0); CALCIUM 8.6 MG/DL (8.5-10.1); CHLORIDE 105 MMOL/L (99-107); GLUCOSE 104 MG/DL (70-104); POTASSIUM 4.2 MMOL/L (3.5-5.1); SODIUM 141 MMOL/L (135-145); TOTAL CARBON DIOXIDE 28.6 MMOL/L (24-32); eCRCL 68 ML/MIN; eGFR > 90 ML/MIN
[2023-09-05 10:27] LABS: ANISOCYTOSIS 2+; MICROCYTOSIS 1+; PLATELET ESTIMATE NORMAL
--- NOTE | 2023-09-05 11:10 | NUR ---
Pt D/C per surgeon. PIV removed, cannula intact. Tele discontinued. All belongings taken home by patient. Reviewed discharge instructions with patient and spouse, all questions and concerns addressed. RX e-scribed to pharmacy. Pt was wheeled down to lobby by volunteer and taken home by spouse. Pt stable and appropriate for discharge.
[2023-09-06] MEDS ORDERED: losartan 50mg tablet PO SCH (08:00)
== END 2023-09-05 11:10 | disposition home or self-care (01) | DRG 219 ==
LOC: PAS IN 05:20 → ICU 2S 13:07 → PCU 3S 09-04 11:25
PROVIDERS: ADMIT Thoracic Surgery (Cardiothoracic Vascular Surgery); ATTEND Thoracic Surgery (Cardiothoracic Vascular Surgery)
PROC: 02RF08Z Replacement of Aortic Valve with Zooplastic Tissue, Open Approach (ICD-10-PCS; 2023-09-01)
PROC: 06BQ4ZZ Excision of Left Saphenous Vein, Percutaneous Endoscopic Approach (ICD-10-PCS; 2023-09-01)
PROC: 02100Z9 Bypass Coronary Artery, One Artery from Left Internal Mammary, Open Approach (ICD-10-PCS; 2023-09-01)
PROC: 5A1221Z Performance of Cardiac Output, Continuous (ICD-10-PCS; 2023-09-01)
PROC: B24BZZ4 Ultrasonography of Heart with Aorta, Transesophageal (ICD-10-PCS; 2023-09-01)
PROC: 05HY33Z Insertion of Infusion Device into Upper Vein, Percutaneous Approach (ICD-10-PCS; 2023-09-01)
PROC: 03HY32Z Insertion of Monitoring Device into Upper Artery, Percutaneous Approach (ICD-10-PCS; 2023-09-01)
PROC: 021209W Bypass Coronary Artery, Three Arteries from Aorta with Autologous Venous Tissue, Open Approach (ICD-10-PCS; principal; 2023-09-01 08:02)
DX: I25.10 Atherosclerotic heart disease of native coronary artery without angina pectoris (principal); J96.00 Acute respiratory failure, unspecified whether with hypoxia or hypercapnia; Z68.41 Body mass index [BMI] 40.0-44.9, adult; I35.0 Nonrheumatic aortic (valve) stenosis; E11.9 Type 2 diabetes mellitus without complications; Z96.653 Presence of artificial knee joint, bilateral; I70.0 Atherosclerosis of aorta; I10 Essential (primary) hypertension; G47.30 Sleep apnea, unspecified; E78.5 Hyperlipidemia, unspecified; E66.01 Morbid (severe) obesity due to excess calories; R09.02 Hypoxemia; E87.70 Fluid overload, unspecified
CPT/HCPCS: 36415; 36600; 71045; 71250; 76376; 80048; 80053; 81003; 82330; 82435; 82803; 82947; 82948; 83036; 83735; 84100; 84132; 84295; 85007; 85008; 85018; 85025; 85347; 85610; 85730; 86885; 86900; 86901; 86920; 87081; 88300; 93005; 93312; 93325; 93970; 94002; 94010; 94760; 97161; 97530; A4333; A4615; A4618; A6213; A6250; A6258; A6402; A6449; A7000; A7048; C1751; C1758; G0378; J0171; J0690; J1644; J1815; J1940; J2060; J2150; J2270; J2704; J2720; J2930; J3370; J3480; J3490; J7030; J7040; J7050; J7060; J7120; P9047; S0020

== ENCOUNTER 2023-09-20 11:22 | Outpatient (CLI) | payer MEDICARE, OTHER ==
[~2023-09-20 11:22] MED LIST changes: +HYDR-3972 PO; +LOP12.5T PO; -ringers solution, lacted 1,000 ML IV SCH
== END 2023-09-20 23:59 | disposition home or self-care (01) ==
LOC: RAD 11:22
PROVIDERS: ATTEND Thoracic Surgery (Cardiothoracic Vascular Surgery)
DX: I51.7 Cardiomegaly (principal); I35.0 Nonrheumatic aortic (valve) stenosis
CPT/HCPCS: 71046